=== PATIENT | female | born 1995 | race Two or more races ===

== ENCOUNTER 2019-06-12 13:29 | Emergency (ER) | payer MEDICAID ==
[~2019-06-12] VITALS: Ht 160 cm; Wt 100.7 kg
[2019-06-12 13:37] VITALS: BP 137/82
--- NOTE | 2019-06-12 14:19 | NUR ---
Patient discharged to home in stable condition. Written and verbal after care instructions given. Patient verbalizes understanding of instruction.
== END 2019-06-12 14:19 | disposition home or self-care (01) ==
LOC: ER 13:29
DX: J02.0 Streptococcal pharyngitis (principal)

== ENCOUNTER 2020-01-05 23:50 | Emergency (ER) | payer MEDICAID ==
[~2020-01-05] VITALS: Ht 160 cm; Wt 104.3 kg
[2020-01-05 23:52] VITALS: BP 132/64
== END 2020-01-06 00:24 | disposition home or self-care (01) ==
LOC: ER 23:56
DX: L72.8 Other follicular cysts of the skin and subcutaneous tissue (principal)

== ENCOUNTER 2020-09-11 20:48 | Emergency (ER) | payer MEDICAID ==
[~2020-09-11] VITALS: Ht 157.5 cm; Wt 96.2 kg
--- NOTE | 2020-09-11 21:59 | NUR ---
BIBRA TO ER BED 7. AAOX4. NOT IN RESP DISTRESS. AMBULATORY. BROUGHT IN FOR LEFT HAND PAIN AND SWELLING, HEAD TRAUMA, FRONTAL HEAD PAIN /, MULTIPLE SUPERFICAL ABRASSIONS. DENIED LOC. PT WEARING SEATBELT. NOTED TENDERNESS UPON PALPATION OF LOWER ABD. PT ALSO NOTED WITH A VERY SMALL PIECE OF GLASS ON THE LATERAL ASPECT OF THE R HAND WHICH PROVIDER REMOVED WHILE BEING ASSESSED. URINE COLLECTED AND SENT TO LAB. IV LINE ESTABLISHED ON THE R AC 20G, BLOOD DRAWN AND SENT TO LAB.
[2020-09-11] MEDS ORDERED: ONDANSETRON HCL/PF 4 MG/2 ML VIAL IVP ONE (22:00)
[2020-09-11] MEDS ORDERED: MORPHINE SULFATE INJ 2 MG/ML DISP.SYRIN IV ONE (22:00)
[2020-09-11 22:01] LABS: BASOPHILS # (AUTO) 0.1 /CMM (0.0-0.2); BASOPHILS % (AUTO) 0.6 % (0.0-2.0); EOSINOPHILS % (AUTO) 0.9 % (0.0-6.0); HEMATOCRIT 42 % (33-45); HEMOGLOBIN 13.5 g/dL (11.5-14.8); LYMPHOCYTES # (AUTO) 2.4 /CMM (0.8-4.8); LYMPHOCYTES % (AUTO) 18.3 % (20.0-44.0); MEAN CORPUSCULAR HGB CONC 32 g/dl (31.0-36.0); MEAN CORPUSCULAR VOLUME 82 fL (82-100); MONOCYTES # (AUTO) 0.6 /CMM (0.1-1.30); MONOCYTES % (AUTO) 4.4 % (2.0-12.0); NEUTROPHILS % (AUTO) 75.8 % (43.0-81.0); PLATELET COUNT (AUTO) 357 /CMM (150-450); RED BLOOD CELL COUNT(AUTO) 5.17 MIL/uL (4.0-5.2); WHITE BLOOD COUNT (AUTO) 13.2 K/uL (4.3-11.0)
[2020-09-11] MEDS ORDERED: MORPHINE SULFATE INJ 4 MG/ML DISP.SYRIN ONE (22:03)
[2020-09-11] MEDS ORDERED: ONDANSETRON HCL/PF 4 MG/2 ML VIAL ONE (22:03)
[2020-09-11 22:08] LABS: CALCIUM, SERUM 9.8 mg/dL (8.5-10.1); CREATININE 0.6 mg/dL (0.6-1.3); POTASSIUM 3.7 mmol/L (3.5-5.1)
[2020-09-11] MEDS ORDERED: IV NS 0.9% 250 ML IV ONE (22:10)
[2020-09-11] MEDS ORDERED: CT SWABBABLE VALVE TRANS SET 1 EA INFUS.SET MC ONE (22:10)
[2020-09-11] MEDS ORDERED: IOHEXOL-300 100 ML VIAL IV ONE (22:10)
[2020-09-11] MEDS ORDERED: NORMAL SALINE 10 ML DISP.SYRIN ONE (22:45)
[2020-09-11] MEDS ORDERED: TRAM50TA2 PO (23:29)
[2020-09-11] MEDS ORDERED: CYCL5TAB PO (23:29)
[2020-09-11] MEDS ORDERED: IBUP-1955 PO (23:29)
--- NOTE | 2020-09-11 23:30 | NUR ---
PT L ARM WRAPPED WITH KERLIX.
--- NOTE | 2020-09-11 23:46 | NUR ---
Patient discharged to home in stable condition. Written and verbal after care instructions given. Patient verbalizes understanding of instruction.IV removed. Catheter intact and site benign. Pressure and 4x4 applied to site. No bleeding noted. Pt ambulatory with a steady gait
[2020-09-11 23:49] VITALS: BP 141/85
== END 2020-09-11 23:49 | disposition home or self-care (01) ==
LOC: ER 20:48
DX: S50.812A Abrasion of left forearm, initial encounter (principal); M54.5 Low back pain; M79.645 Pain in left finger(s); R10.30 Lower abdominal pain, unspecified; E11.65 Type 2 diabetes mellitus with hyperglycemia; V49.49XA Driver injured in collision with other motor vehicles in traffic accident, initial encounter; Y93.89 Activity, other specified; Y92.413 State road as the place of occurrence of the external cause; Y99.8 Other external cause status
CPT/HCPCS: 29130; 36415; 73090; 73130; 74177; 80048; 82962; 84703; 85025; 85730; 96374; 96375; 99285; A6403 ×2; J2270; J2405; J7050; Q9967

== ENCOUNTER 2021-03-31 19:26 | Emergency (ER) | payer OTHER ==
[~2021-03-31] VITALS: Ht 160 cm; Wt 103.4 kg
[~2021-03-31 19:26] MED LIST: CYCL5TAB PO; IBUP-1955 PO; TRAM50TA2 PO
[2021-03-31 21:28] VITALS: BP 150/95
--- NOTE | 2021-03-31 21:45 | NUR ---
Patient discharged to home in stable condition. Written and verbal after care instructions given. Patient verbalizes understanding of instruction.pT ambulatory with a steady gait
[2021-03-31] MEDS ORDERED: BACI/NEOM/POLY B OINT PKT 1 UDPKT PACKET TP ONE (22:00)
== END 2021-03-31 21:45 | disposition home or self-care (01) ==
LOC: ER 19:33
DX: S60.311A Abrasion of right thumb, initial encounter (principal); W26.0XXA Contact with knife, initial encounter; Y93.89 Activity, other specified; Y92.89 Other specified places as the place of occurrence of the external cause; Y99.8 Other external cause status

== ENCOUNTER 2021-08-29 15:41 | Emergency (ER) | payer OTHER ==
[~2021-08-29] VITALS: Ht 160 cm; Wt 102.5 kg
--- NOTE | 2021-08-29 15:41 | NUR ---
PT BIB SELF C/O VAGINAL BLEED "SMALL AMOUNT ONLY IS LIKE A SPOTTING" PT IS AAOX4, NOT IN RESPIRATORY DISTRESS, V/S STABLE, KEPT RESTED AND COMFORTABLE. WILL CONTINUE TO MONITOR.
--- NOTE | 2021-08-29 15:49 | NUR ---
PT SEEN AND EXAMINED BY .
--- NOTE | 2021-08-29 15:55 | NUR ---
URINE SEPCIMEN COLLECTED AND SENT TO LAB.
--- NOTE | 2021-08-29 16:01 | NUR ---
ULTRASOUND AT BEDSIDE
[2021-08-29 16:38] LABS: BILIRUBIN,URINE NEGATIVE (NEGATIVE); COLOR,URINE YELLOW (YELLOW); LEUKOCYTE ESTERASE ,URINE NEGATIVE (NEGATIVE); NITRITE, URINE NEGATIVE (NEGATIVE); PROTEIN,URINE NEGATIVE (NEGATIVE); UGLUCOSE >=1000 mg/dL (NEGATIVE); UROBILINOGEN,URINE 0.2 EU/dL (0.2)
[2021-08-29 16:45] LABS: BASOPHILS # (AUTO) 0.1 K/uL (0.0-0.2); EOSINOPHILS % (AUTO) 1.1 % (0.0-6.0); HEMATOCRIT 40 % (33-45); HEMOGLOBIN 13.1 g/dL (11.5-14.8); LYMPHOCYTES # (AUTO) 2.1 K/uL (0.8-4.8); LYMPHOCYTES % (AUTO) 20.6 % (20.0-44.0); MEAN CORPUSCULAR HGB CONC 32 g/dl (31.0-36.0); MEAN CORPUSCULAR VOLUME 81 fL (82-100); MONOCYTES # (AUTO) 0.5 K/uL (0.1-1.30); NEUTROPHILS # (AUTO) 7.4 K/uL (1.8-8.9); NEUTROPHILS % (AUTO) 72.3 % (43.0-81.0); PLATELET COUNT (AUTO) 288 K/uL (150-450); WHITE BLOOD COUNT (AUTO) 10.2 K/uL (4.3-11.0)
[2021-08-29 17:11] LABS: RBC,URINE 51-80 /HPF (0-2)
[2021-08-29 17:12] LABS: BACTERIA,URINE 1+ /HPF (None Seen); WBC,URINE 0-2 /HPF (0-3)
[2021-08-29 17:25] LABS: CALCIUM, SERUM 8.9 mg/dL (8.5-10.1); CREATININE 0.6 mg/dL (0.6-1.3); POTASSIUM 3.4 mmol/L (3.5-5.1)
--- NOTE | 2021-08-29 17:40 | NUR ---
Patient discharged to home in stable condition. Written and verbal after care instructions given. Patient verbalizes understanding of instruction.
[2021-08-29 17:41] VITALS: BP 132/88
== END 2021-08-29 17:41 | disposition home or self-care (01) ==
LOC: ER 15:45
DX: O46.91 Antepartum hemorrhage, unspecified, first trimester (principal); O26.891 Other specified pregnancy related conditions, first trimester; R73.9 Hyperglycemia, unspecified; Z3A.01 Less than 8 weeks gestation of pregnancy; Z79.899 Other long term (current) drug therapy
CPT/HCPCS: 36415; 76805-TC; 80048-TC; 81001; 84702-TC; 85025-TC